=== PATIENT | female | born 1980 | race Caucasian/White ===

== ENCOUNTER 2022-09-23 22:26 | Emergency (ER) | payer BC, SELFPAY ==
[2022-09-23 22:34] VITALS: BP 125/82; PULSE 74; RESP 16; O2SAT 100
[2022-09-23 22:41] LABS: Bilirubin Negative (Negative); Blood Moderate (Negative); Clarity Clear (Clear); Glucose Negative (Negative); Ketones Negative (Negative); Leukocyte Esterase Small (Negative); Nitrite Negative (Negative); Specific Gravity 1.025 (1.005-1.025); Urobilinogen 0.2 mg/dL (Up to 0.2); pH 5.5 (5-8)
--- NOTE | 2022-09-23 22:41 | W.ED.GENAD ---
Discharge Plan Disposition Patient Disposition: Home Condition: Good Discharge Details Clinical Impression: Right kidney stone Primary Care Provider: Unknown,Unknown ED Provider: John Paul Kamara Home Meds and New Rx's Prescriptions: New ketorolac 10 mg tablet 10 mg PO TID 5 Days Qty: 15 0RF cephalexin 500 mg capsule 500 mg PO QID 7 Days Qty: 28 0RF tamsulosin [Flomax] 0.4 mg capsule 0.4 mg PO DAILY Qty: 10 0RF No Action escitalopram oxalate 10 mg tablet 10 mg PO DAILY Vyvanse 30 mg capsule 30 mg PO DAILY Patient Comments: TAKE ONE CAPSULE BY MOUTH EVERY DAY Mounjaro 10 mg/0.5 mL pen injector 7.5 mg SUBCUT .WEEKLY Patient Comments: INJECT 10MG UNDER THE SKIN EVERY WEEK DIRECTED Discharge Instructions Instructions: Kidney Stones (ED) Additional Instructions: At this time it appears that you still have evidence of a 4 mm kidney stone on the right. There is no evidence of infection at this time of the urinalysis or your labs, however if the kidney stone has been there as long as we are concerned for, there is a risk of potential infection if it is not removed. Please take the antibiotic out of an abundance of precaution. Please follow-up closely with your urologist at the [facility]. Please take the ketorolac, Toradol, and Keflex as directed. Take your home pain medication for breakthrough pain only as needed. If you notice any worsening of your symptoms, or any new symptoms such as vomiting, diarrhea, fever, chills, shortness of breath, chest pain, numbness, weakness, or fainting , please return immediately to the emergency department for reevaluation. Please follow up with your primary care provider as soon as possible for reassessment and reevaluation. As always, it was a pleasure participating in your medical care today. Medical Decision Making This is a pleasant 42-year-old female with a past medical history of a kidney stone about a month or so ago, presents today for evaluation of right flank pain. Patient states that about 2 hours ago she developed right-sided achiness that transitions to her right groin. Feels similar but different to her last kidney stone. She denies any blood in her urine that she is aware of. She denies any vomiting or diarrhea. She denies any vaginal discharge. She denies any fever or chills. She did have an ultrasound at the [facility] recently which showed no continued presence of her previous kidney stone. She did take ibuprofen prior to arrival and does state that this helps to improve the pain. Exam demonstrates well-appearing female, vital signs stable. Mild right lower quadrant tenderness. Differential includes kidney stone versus appendicitis. We will treat with Tylenol, Flomax, rehydrate, get a CT scan, monitor closely and reassess. Patient does not want any narcotics at this time. 1:30 AM Laboratory work-up has returned, no white count bandemia or left shift. Electrolytes normal. Renal function normal. Clean-catch urinalysis shows moderate blood, no leuk esterase, no WBCs, no nitrites. No evidence of infection. CT scan shows evidence of a 4 x 3 x 2 mm calculus in the distal right ureter. On reassessment patient still does have mild pain but states that she feels much better. I had a long discussion with the patient regarding admission here for continued pain control versus discharge. At this time through shared decision-making process when the risks and benefits patient has requested to go home. Although there is no evidence of infection, because the stone likely has been in there for quite some time I am concerned for the potential of infection later although there is no evidence of pyelonephritis, infection or other abnormality in regards to infectious etiology at this time. Out of an abundance of precaution we will give/administer 2 g of ceftriaxone now and a prescription of Keflex for home use. I recommend urgent follow-up with her urologist at the [facility] soon as possible for further discussion of potential stenting as it does not appear that the stone has actually resolved even though that is what was suspected earlier. Patient otherwise feels well and is requesting to go home. Discussed red flags for which to return. I have extensively reviewed the treatment plan and discharge instructions with the patient and their family. I have addressed all patient concerns at this time. The patient and family was made aware of what symptoms to monitor for that would warrant a return to the emergency department. Discussed the plan with the patient and family, they demonstrate verbal understanding and agreement with our assessment and plan at this time. The documentation in this chart was dictated using [employer] dictation software. Please excuse any dictation errors. FINDINGS: Diaphragm: Small-sized hiatal hernia. Liver: Normal. Gallbladder and bile ducts: Gallbladder surgically absent. Pancreas: Normal. Spleen: Normal. Adrenal glands: Normal. No mass. Kidneys and ureters: Moderate right hydroureteronephrosis, with obstructive 4 x 3 x 2 mm calculus within the distal right ureter (series 3, image 670). Stomach and bowel: Surgical changes of prior gastric sleeve procedure, without acute complications. Appendix: Appendix normal. Intraperitoneal space: Unremarkable. No free air. No significant fluid collection. Vasculature: Multiple phleboliths within the pelvis. Lymph nodes: Unremarkable. No enlarged lymph nodes. Urinary bladder: Unremarkable as visualized. Reproductive: Unremarkable as visualized. Bones/joints: No acute abnormality. Soft tissues: Normal. IMPRESSION: Moderate right hydroureteronephrosis, with obstructive 4 x 3 x 2 mm calculus within the distal right ureter (series 3, image 670). Thank you for allowing us to participate in the care of your patient. Dictated and Authenticated by: Diony Bowie MD 09/24/2022 12:25 AM Eastern Time ([place] & [place]) HPI General Date/Time Provider Initiated Documentation: 09/23/22 22:30. HPI Narrative: This is a pleasant 42-year-old female with a past medical history of a kidney stone about a month or so ago, presents today for evaluation of right flank pain. Patient states that about 2 hours ago she developed right-sided achiness that transitions to her right groin. Feels similar but different to her last kidney stone. She denies any blood in her urine that she is aware of. She denies any vomiting or diarrhea. She denies any vaginal discharge. She denies any fever or chills. She did have an ultrasound at the [facility] recently which showed no continued presence of her previous kidney stone. She did take ibuprofen prior to arrival and states that this helps to improve the pain. Related Data Home Medications Medication Instructions Recorded Confirmed escitalopram oxalate 10 mg tablet 10 mg PO DAILY 09/23/22 09/23/22 lisdexamfetamine 30 mg capsule 30 mg PO DAILY 09/23/22 09/23/22 (Vyvanse) tirzepatide 10 mg/0.5 mL 7.5 mg subcut .WEEKLY 09/23/22 09/23/22 subcutaneous pen injector (Anjum) cephalexin 500 mg capsule 500 mg PO QID 7 days #28 caps 09/24/22 ketorolac 10 mg tablet 10 mg PO TID 5 days #15 tabs 09/24/22 tamsulosin 0.4 mg capsule (Flomax) 0.4 mg PO DAILY #10 caps 09/24/22 Previous Rx's Medication Instructions Recorded cephalexin 500 mg capsule 500 mg PO QID 7 days #28 caps 09/24/22 ketorolac 10 mg tablet 10 mg PO TID 5 days #15 tabs 09/24/22 tamsulosin 0.4 mg capsule (Flomax) 0.4 mg PO DAILY #10 caps 09/24/22 Allergies Allergy/AdvReac Type Severity Reaction Status Date / Time Latex, Natural Rubber Allergy Hives Unverified 09/23/22 22:40 nickel Allergy Hives Unverified 09/23/22 22:41 General Stated Complaint: Abd Prob CARMEN: 3 Review of Systems All systems reviewed & are unremarkable except as noted in HPI and below PFSH All Active Problems (Updated 09/24/22 @ 00:55 by John Paul Kamara DO) Right kidney stone (Acute) Social History Smoking/Tobacco Use Status: Never Smoking risk assessment performed?: Yes Substance use type: does not use Exam Narrative Exam Narrative: 1.Const: Well-nourished, Well-developed, appearing stated age 2.Eyes: PERRL, no conjunctival injection, and symmetrical lids. 3.ENT: Atraumatic external nose and ears. Moist MM. Neck: Symmetric, trachea midline, No thyromegaly. 4.CVS: +S1/S2, No murmurs or gallops. Peripheral pulses 2+ and equal in all extremities. Brisk capillary refill in all extremities. 5.RESP: Unlabored respiratory effort. Clear to auscultation bilaterally. No wheezes rales or rhonchi 6.GI: Soft, nondistended. No guarding or rebound. Mild right flank/CVA tenderness. Mild right lower quadrant tenderness. 7.MSK: Normocephalic/Atraumatic, Extremities w/o deformity or ttp No cyanosis or clubbing, Normal movement of all extremities 8.Skin: Warm, Dry. No rashes or lesions. 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 Sensation grossly intact, no focal neurologic deficits. 10.Psych: (AAO) x3. Appropriate mood and affect Course Vital Signs Vital signs: Vital Signs Pulse 74 09/23/22 22:34 Respiratory Rate 16 09/23/22 22:34 Blood Pressure 125/82 09/23/22 22:34 Pulse Oximetry 100 09/23/22 22:34 Pulse 74 09/23/22 22:34 Respiratory Rate 16 09/23/22 22:34 Respiratory Effort Normal 09/23/22 22:34 Blood Pressure 125/82 09/23/22 22:34 Blood Pressure Position Sitting 09/23/22 22:34 Pulse Oximetry 100 09/23/22 22:34 Oxygen Delivery Method Room Air 09/23/22 22:34 Oxygen Flow Rate 0 09/23/22 22:34 Pain Level 4 09/23/22 22:34
[2022-09-23 22:53] LABS: Bacteria Few HPF (Negative); C & S Indicated? No/Sq. Contamination; Casts Negative LPF (Negative); Crystals Negative HPF (Negative); Epithelial Cells Moderate HPF (Negative); Mucus Moderate (Negative)
--- NOTE | 2022-09-23 23:00 | DI.CT_ITS ---
Exam(s) CT ABDOMEN PELVIS WO EXAM: CT ABDOMEN PELVIS WO CLINICAL HISTORY: right flank and rlq abd pain. TECHNIQUE: Imaging Protocol: Axial computed tomography images with coronal and sagittal reformatted images were created and reviewed CONTRAST MATERIAL: Intravenous: none Oral: None COMPARISON: No exams were available for comparison FINDINGS: VISUALIZED LUNG BASES: No nodules nor pleural effusions evident. ABDOMEN: There is no ascites. Evidence of gastric surgery, probably gastric sleeve bariatric-type. No abnorm al streaking nor fluid collections around the stomach. LIVER: There are no obvious focal hepatic lesions evident of this noninfused study. GALLBLADDER/BILIARY: Gallbladder surgically absent. CBD is not dilated. PANCREAS: No evidence of pancreatic mass nor dilatation of the pancreatic duct. SPLEEN: Spleen is not enlarged. No obvious intrasplenic lesions. ADRENALS: There are no significant adrenal masses. KIDNEYS:Left kidney unremarkable. There is right-sided hydronephrosis and hydroureter with the right ureter dilated to 1.5 cm diameter, this due to an obstructing calculus in the lower right ureter whi ch measures 4-5 mm. No calculi in the nondistended urinary bladder. ABDOMINAL AORTA: Abdominal aorta is not enlarged. LYMPH NODES: There is no retroperitoneal nor paraaortic adenopathy. ABDOMINAL WALL: No evidence of significant anterior abdominal wall nor inguinal hernia. GI: There is no evidence of bowel obstruction, free air, nor abscess. PELVIS: LYMPH NODES: There is no intrapelvic nor inguinal adenopathy. GI: No evidence of appendicitis.No evidence of sigmoid diverticulitis. URINARY BLADDER: No calculi nor obvious masses evident REPRODUCTIVE: Uterus and adnexal regions unremarkable. No free fluid. OSSEOUS: No significant osseous lesions. IMPRESSION: 1. There is an obstructing 4-5 millimeter calculus in the lower right ureter with hydronephrosis-hydr oureter above this level. No nephrolithiasis. RADIATION DOSE DELIVERED: 825.4mGy.cm Total DLP DATA REPOSITORY: All CT scans at this facility are submitted to the National Radiology Data Registry (NRDR) Dose Index Registry (DIR) with the [employer] (ACR). RADIATION OPTIMIZATION: All CT scans at this facility use at least one of these dose optimization te chniques: automated exposure control; mA and/or kV adjustment per patient size (includes targeted exa ms where dose is matched to clinical indication); or iterative reconstruction.
[2022-09-23] MEDS: Acetaminophen 500 MG TAB 1000 MG PO (23:01)
[2022-09-23] MEDS: Normal Saline 1,000 ML 1000 ML IV (23:01)
[2022-09-23 23:04] LABS: Abs Immature Grans 0.02 10^3/uL (0.0-0.06); Absolute Basophil Count 0.03 10^3/uL (0.0-0.2); Absolute Eosinophil Count 0.19 10^3/uL (0.0-0.7); Absolute Monocyte Count 0.42 10^3/uL (0.1-0.8); Basophils % 0.5; Eosinophils % 2.9; HCT 38.4 % (36.0-46.0); HGB 13.2 g/dL (11.2-15.7); Immature Grans % 0.3; Lymphocytes % 35.1; MCH 29.5 pg (27.0-33.0); MCHC 34.4 % (32.0-36.0); MCV 86 fL (80-95); MPV 9.9 fL (8.0-11.0); Monocytes % 6.4; Neutrophils % 54.8; Platelet Count 197 10^3/uL (130-400); RBC 4.47 10^6/uL (3.93-5.22); RDW 12.7 % (11.7-14.6); RDW-SD 39.8 fL; WBC 6.56 10^3/uL (4.4-10.8)
[2022-09-23 23:21] LABS: ALT 17 U/L (14-59); AST 11 U/L (15-37); Albumin 3.8 g/dL (3.4-5.0); Alkaline Phosphatase 49 U/L (46-116); BUN 15 mg/dL (7-18); Bilirubin, Total 0.4 mg/dL (0.2-1.0); Calcium 8.3 mg/dL (8.5-10.1); Chloride 105 mmol/L (98-107); Estimated GFR 73.04 (mL/min/1.73m2); Glucose 90 mg/dL (74-106); Potassium 4.3 mmol/L (3.5-5.1); Sodium 142 mmol/L (136-145); Total Protein 6.8 g/dL (6.4-8.2)
[2022-09-23] MEDS: Tamsulosin 0.4 MG CAPCR PO (23:49)
--- NOTE | 2022-09-24 00:25 | DI.VRAD_ITS ---
PROCEDURE INFORMATION: Exam: CT Abdomen And Pelvis Without Contrast Exam date and time: 09/23/2022 11:28 PM Age: 42 years old Clinical indication: Other: Right flank pain TECHNIQUE: Imaging protocol: Computed tomography of the abdomen and pelvis without contrast. Radiation optimization: All CT scans at this facility use at least one of these dose optimization techniques: automated exposure control; mA and/or kV adjustment per patient size (includes targeted exams where dose is matched to clinical indication); or iterative reconstruction. COMPARISON: No relevant prior studies available. FINDINGS: Diaphragm: Small-sized hiatal hernia. Liver: Normal. Gallbladder and bile ducts: Gallbladder surgically absent. Pancreas: Normal. Spleen: Normal. Adrenal glands: Normal. No mass. Kidneys and ureters: Moderate right hydroureteronephrosis, with obstructive 4 x 3 x 2 mm calculus within the distal right ureter (series 3, image 670). Stomach and bowel: Surgical changes of prior gastric sleeve procedure, without acute complications. Appendix: Appendix normal. Intraperitoneal space: Unremarkable. No free air. No significant fluid collection. Vasculature: Multiple phleboliths within the pelvis. Lymph nodes: Unremarkable. No enlarged lymph nodes. Urinary bladder: Unremarkable as visualized. Reproductive: Unremarkable as visualized. Bones/joints: No acute abnormality. Soft tissues: Normal. IMPRESSION: Moderate right hydroureteronephrosis, with obstructive 4 x 3 x 2 mm calculus within the distal right ureter (series 3, image 670). Dictated and Authenticated by: Diony Bowie MD. Ordering:ALONZO Coker MD
[2022-09-24 00:38] LABS: Bilirubin Negative (Negative); Blood Moderate (Negative); Clarity Clear (Clear); Glucose Negative (Negative); Ketones Negative (Negative); Leukocyte Esterase Negative (Negative); Nitrite Negative (Negative); Specific Gravity >= 1.030 (1.005-1.025); Urobilinogen 0.2 mg/dL (Up to 0.2)
[2022-09-24 00:48] LABS: Bacteria Moderate HPF (Negative); C & S Indicated? No; Casts Negative LPF (Negative); Crystals Negative HPF (Negative); Epithelial Cells Few HPF (Negative); Mucus Negative (Negative); RBC >50 HPF (0-2); WBC Negative HPF (0-5)
[2022-09-24] MEDS: Ketorolac 15 MG/ML VIAL IVP (00:54)
[2022-09-24] MEDS: cefTRIAXone 2 GM/50 ML BAG IVPB (00:54)
[2022-09-24] MEDS: MORPHine 4 MG/ML SYR IVP (01:27)
[2022-09-24 01:28] VITALS: BP 118/72; PULSE 78; RESP 18; O2SAT 98
[2022-09-24] MEDS: Ondansetron 4 MG/2 ML VIAL IVP (01:28)
[2022-09-24] MEDS: Ondansetron O.D.T. 4 MG TABEF, 3 TABS/BTL PO (01:28)
== END 2022-09-24 01:52 | disposition home or self-care (01) ==
PROVIDERS: Emergency Provider Student in an Organized Health Care Education/Training Program
DX: N20.0 Calculus of kidney (principal)
CPT/HCPCS: 80053; 96361; 96365; 96375; 99284; 74176; 81003; 81015; 85025; J1885; J2270; J2405